=== PATIENT | male | born 1950 | race Caucasian/White ===

== ENCOUNTER 2016-10-01 09:39 | Inpatient (IN) | payer OTHER ==
[~2016-10-01] VITALS: Ht 182.9 cm; Wt 84.0 kg
--- NOTE | 2016-10-05 09:27 | HP ---
ADMIT: 10/01/2016 RM/LOC: 518 [facility] MR#: [id number] [facility]#: [id number] [address] [address] ROSI MARMOLEJO Michael [address] [place] [address] History and Physical SEX: M AGE: 66 : 1950 DATE OF SERVICE: CHIEF COMPLAINT: Wrist and pelvic pain. HISTORY OF PRESENT ILLNESS: The patient is a 66-year-old male who was up on a ladder today, approximately 20 feet high, as he was cutting a branch, it fell, he fell off the ladder, landing on his pelvis. He had acute pain in his pelvis and left wrist. He also had contusions to his head. He was taken to the emergency room. CT of his head was negative. They did x-rays of his coccyx. At that point, they noted some pubic symphysis diastasis. Because of this, they ordered a CT scan of his pelvis. CT scan of the pelvis shows pubic symphysis diastasis and a left sacral fracture with really no displacement. The patient was admitted for further evaluation and treatment. They did do a closed reduction of wrist and placed him in a splint. He was found to have a left distal radius fracture also. PAST MEDICAL HISTORY: Problem includes hypertension. MEDICATIONS: Include: 1. Lisinopril. 2. Amlodipine. ALLERGIES: NONE. SOCIAL HISTORY: Lives at home. REVIEW OF SYSTEMS: Negative. PHYSICAL EXAMINATION: HEENT: Healthy-appearing male. He has some contusions of left face and cheek, CT of his head was negative though. He has pain over the pubic symphysis, little pain over left posterior sacral area. MUSCULOSKELETAL: Legs neurovascularly intact. No pain with hip range of motion. No pain in the knees or ankles. No pain in his thoracolumbar spine. He does have pain in the wrist. He is now in a long arm splint. Normal sensation of the fingers. Good pulses. No open sores. X-RAYS: X-rays of left wrist initially show a left mildly displaced distal radius fracture. They obtained x-rays with him hanging in finger traps, but there are no x-rays of him actually in a splint post reduction. They did coccyx view and lateral view of his pelvis. Does show pubic symphysis diastasis, but we do not have a true pelvic view. CT scan of the pelvis shows pubic symphysis diastasis, nondisplaced sacral ala fracture. ADMIT: 10/01/2016 RM/LOC: 518 [facility] MR#: [id number] [address] [address] [place] [address] History and Physical SEX: M AGE: 66 : 1950 IMPRESSION: 1. Left sacral ala fracture, nondisplaced to his left pubic symphysis diastasis. 2. Left mildly displaced distal radius fracture. PLAN: At this point, we need to get x-rays in the splint to check the reduction in the splint. He does have some slight dorsal comminution. We are going to get an AP pelvis x-ray. We will measure his pubic symphysis diastasis and make definitive recommendations once we can get a true pelvis x- ray. For now, he can be bed to bathroom, no weightbearing on the left leg or left arm. I will make him n.p.o. after midnight in case we need to proceed with any wrist intervention. Ashwin Randle MD/ chris JOB #: [id number] CC: Ashwin Randle, Attending Physician Ashwin Randle, Family Physician
--- NOTE | 2016-10-05 23:16 | ER ---
ADMIT: 10/01/2016 RM/LOC: 518 [facility] MR#: [id number] [address] [facility] [address] [place], [place] [address] ROSI MARMOLEJO [address] [place] [address] Emergency Room Report SEX: M AGE: 66 : 1950 DATE: 10/01/2016 CHIEF COMPLAINT: Fall. HISTORY OF PRESENT ILLNESS: This is a pleasant 66-year-old, white male, who presents to the ER for evaluation following a fall. The patient states he was on a ladder approximately 18 to 20 foot in the air using a saw to cut down some branches when the branch broke free and knocked him off the ladder. The patient states he was initially knocked off his balance, slid about 6 foot down the ladder and then fell on what he believes to be his buttocks and left hand. At presentation, the patient complained of significant posterior "tailbone" pain as well as some discomfort in his left wrist. EMS reported obvious deformation of the left wrist at the scene and did apply a VIKI splint. The patient denies any shortness of breath, headache, or loss of consciousness. No recent illness, fever, weakness, numbness, back pain, nausea, or vomiting. PAST MEDICAL HISTORY: Significant for hypertension. PAST SURGICAL HISTORY: Includes tonsil and adenoidectomy. MEDICATIONS: He takes amlodipine and lisinopril for his hypertension. ALLERGIES: HE HAS NO KNOWN MEDICAL ALLERGIES. SOCIAL HISTORY: He is not a smoker. No drugs. No alcohol. PHYSICAL EXAMINATION: VITAL SIGNS: 127/64, heart rate 61, respiratory rate 18, and temp 96.9. GENERAL: The patient was initially brought in with a backboard and no C-collar. He was in moderate distress, complaining of significant pain about his pelvis region. He was alert and responded appropriately to question. Denied any headache, change in vision, or cervical spine pain. HEAD: Evidence of a 2 cm linear laceration of the left eyebrow as well as abrasion just below the left eye. Does have some emerging ecchymosis below the left eye. NECK: Nontender. He has completely painless range of motion. Trachea is midline. Nexus criteria is met with distracting injury. EYES: Pupils are equal and reactive to light. Extraocular muscle testing was normal. No evidence of any subconjunctival hemorrhage. ENT: Normal ENT exterior inspection. Airway was normal. No obvious dental injury. He does have a small cut on the right side of his cheek that does not need repair. CVS: Chest is nontender no obvious ecchymosis. No pain with palpation or compression of the thorax. Breath sounds normal. Heart sounds normal. ABDOMEN: Soft, nondistended. No tenderness. NEURO/PSYCH: He is oriented to person, place, time, and situation. Cranial nerves are normal. Sensation is normal tested in upper lower extremities. Reflexes intact. 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 Denies any numbness or tingling into his distal extremities. SKIN: Warm and dry. He does have the 2 cm laceration above the left eyebrow and abrasion below the left eye. BACK: No vertebral tenderness. PELVIS: Limited testing secondary to pain with manipulation. No obvious pedal edema. Pulses are equal bilaterally in the lower extremities. DIAGNOSTIC DATA: X-ray of the left forearm shows a displaced distal radius fracture with ulnar styloid fracture. X-ray of the coccyx shows no acute fracture of the coccyx, but does show widened pubic symphysis. Secondary to this, we did proceed with a CT abdomen and pelvis without contrast showing no free fluid, no obvious pneumothorax, does show a left sacral fracture with a widened pubic symphysis. CT head and C-spine were negative for any acute fracture or bleed. LABORATORY DATA: Basic labs were obtained. Sodium 143, potassium 3.1, chloride is 108, carbon dioxide 26, glucose 139, creatinine 1.1. PT was 10.5, INR 1.01, PTT 22.3. CBC shows white count 17.9, hemoglobin 13.6, hematocrit 39.9, and platelets 200. PT/PTT within normal limits. A total of 3.5 mg Dilaudid IV for pain control. He continued to have significant pain in the department. He is also given 1 mg of Ativan IV secondary to some muscle spasms he was having causing some pain about the pelvic region. PROCEDURES: Left eyebrow laceration repair: The wound was cleaned with Betadine, anesthetized with 5 mL of lidocaine with epinephrine. After anesthesia was achieved, the wound was further cleaned with Betadine irrigated thoroughly with saline. It was explored in a bloodless field. No obvious foreign bodies. The laceration was repaired using four 5-0 Prolene interrupted sutures achieving well everted wound edges and good alignment. Left forearm reduction: X-rays reviewed showing a distal displaced radial fracture with ulnar styloid fracture. The fracture site was roughly palpated, injected using 5 mL lidocaine. After anesthesia was achieved, the patient was placed in finger traps with mild traction. Post reduction films were reviewed showing good alignment. The patient was placed in a sugar-tong splint. Distal ADMIT: 10/01/2016 RM/LOC: 518 [facility] MR#: [id number] [address] [place] [id number] ROSI MARMOLEJO [address] [place] [id number] Emergency Room Report SEX: M AGE: 66 : 1950 pulses intact. Cap refill brisk. Sensation is intact. IMPRESSION: 1. Closed left sacrum fracture. 2. Closed left distal radius fracture. 3. Closed left ulnar styloid fracture. 4. Left eyebrow laceration approximately 2 cm. 5. Abrasion to left cheek just inferior to the eye. DISPOSITION: The patient was discussed with Dr. Randle via Dr. Neal. Dr. Randle agreed to admit the patient to the hospital for further delineation and management of his fractures and pain. The patient will be admitted. TANO Cristina / Nicholas Neal MD / chris JOB #: [id number] CC: Ashwin Randle MD, Attending Physician Ashwin Randle MD, Family Physician
--- NOTE | 2016-11-11 21:11 | DS ---
ADMIT: 10/01/2016 RM/LOC: 518 [facility] MR#: [id number] [address] [place] [id number] ROSI MARMOLEJO [address] [place] [address] General Discharge Summary SEX: M AGE: 66 : 1950 ADMISSION DATE: 10/01/2016 DISCHARGE DATE: 10/02/2016 REASON FOR ADMISSION: The patient was up on a ladder cutting a branch approximately 20 feet near. He fell from a height somewhere a little bit lower than that, landed on his pelvis, had acute pain in the pelvis and the left wrist. He was brought to the hospital and found to have sacral ala fracture with widening of the pelvic symphysis distal radius fracture. ADMISSION DIAGNOSES: 1. Left wrist fracture. 2. Pelvic fracture. 3. Hypertension. HOSPITAL COURSE: Rosi was admitted on 10/01/2016 after suffering a fall as mentioned above. X-rays and CT scan of the pelvis showed sacral ala fracture and widening of the pubic symphysis. Also, had x-rays of the wrist, which showed a displaced distal radius fracture. Distal radius fracture was reduced in the Emergency Department and splinted. Further imaging was ordered on the evening of admission. After dedicated imaging was performed, he was found to have widening of the pubic symphysis that would possibly require surgical fixation. Dr. Randle called Dr. Oscar Brown at [facility], and given the level of displacement of the pelvic fracture, it was recommended further trauma evaluation. He was made n.p.o. after midnight and nonweightbearing on bedrest and transferred the following morning to [place] for care to be resumed there by Dr. Oscar Brown in the Ortho Trauma Service. While he was here, his pain was controlled on combination of oral and IV pain medications. He did very well, had no other acute incidences and was stable at transfer on 12/02/2016. DISCHARGE DIAGNOSES: 1. Young-Black classification APC II pelvic fracture with symphysis widening of greater than 2.5 cm. 2. Right distal radius fracture with displacement. 3. Hypertension, stable. DISCHARGE MEDICATIONS: 1. Norvasc 5 mg daily. ADMIT: 10/01/2016 RM/LOC: 518 [facility] MR#: [id number] [facility] [address] [address] ROSI MARMOLEJO [address] [place] [address] General Discharge Summary SEX: M AGE: 66 : 1950 2. Senokot b.i.d. p.r.n. 3. Zestoretic 20/12.5 daily. 4. Hydrocodone/acetaminophen 5/325 mg 1 to 2 p.o. q.4 p.r.n. 5. Milk of magnesia p.r.n. 6. Maalox p.r.n. 7. Morphine 2 to 4 mg IV every hour p.r.n. DISCHARGE DISPOSITION: Rosi was transferred in stable condition to the accepting hospital at [facility] under the care Dr. Oscar Brown for further trauma managements including likely ORIF of the radius and pelvis. He will follow up per their care and to follow up with primary care locally as directed. Lucio Oliva PA-C / Ashwin Randle MD / chris JOB #: [id number] CC: Ashwin Randle MD, Attending Physician Ashwin Randle MD, Family Physician
== END 2016-10-02 07:25 | disposition short-term general hospital (02) | DRG 552 ==
LOC: ER 09:39 → 5MS 13:00
PROVIDERS: ADMIT Orthopaedic Surgery
PROC: 0HQ1XZZ Repair Face Skin, External Approach (ICD-10-PCS; principal; 2016-10-01)
PROC: 0PSJXZZ Reposition Left Radius, External Approach (ICD-10-PCS; principal; 2016-10-01)
DX: S32.10XA Unspecified fracture of sacrum, initial encounter for closed fracture (principal); I10 Essential (primary) hypertension; S33.39XA Dislocation of other parts of lumbar spine and pelvis, initial encounter; S52.502A Unspecified fracture of the lower end of left radius, initial encounter for closed fracture; S52.612A Displaced fracture of left ulna styloid process, initial encounter for closed fracture; W11.XXXA Fall on and from ladder, initial encounter; S01.112A Laceration without foreign body of left eyelid and periocular area, initial encounter; S00.83XA Contusion of other part of head, initial encounter